=== PATIENT | female | born 1960 | race American Indian/Alaskan Native ===

== ENCOUNTER 2020-07-01 08:20 | Outpatient (CLI) | payer OTHER ==
--- NOTE | 2020-07-01 09:01 | Mammography Report ---
DIGITAL SCREENING MAMMOGRAM WITH CAD, 07/01/2020 CLINICAL INFORMATION / INDICATION: Routine screening mammography. TECHNIQUE: Digital bilateral 2D mammography was obtained in the craniocaudal and mediolateral obliqu e projections. This examination was interpreted with the benefit of Computer-Aided Detection analysis . COMPARISON: 02/18/2018, 06/30/2019 FINDINGS: Breast Density: There are scattered areas of fibroglandular density. No dominant mass, suspicious calcifications, or architectural distortion in either breast. No interval change. IMPRESSION: No mammographic evidence of malignancy. Follow up recommendation: Routine yearly BI-RADS Category 1: Negative. A "normal" or negative report should not discourage follow up or biopsy of a clinically significant f inding. A written summary of these findings will be mailed to the patient. The patient will be entered into a mammography reporting system which will generate a reminder letter for the patient's next appointmen t at the appropriate interval. The [employer] recommends yearly mammograms starting at age 40 and continuing as l annie as a woman is in good health. Breast MRI is recommended for women with an approximate 20-25% or greater lifetime risk of breast cancer, including women with a strong family history of breast or ova jennifer cancer or who have been treated for Hodgkin's disease. Signer Name: Corinna Rutherford MD Signed: 07/01/2020 8:57 AM Workstation Name: [id number]
== END 2020-07-01 08:21 | disposition home or self-care (01) ==
LOC: SPVWC 08:20
PROVIDERS: ATTEND Surgery
DX: Z12.31 Encounter for screening mammogram for malignant neoplasm of breast (principal)
CPT/HCPCS: 77067

== ENCOUNTER 2020-07-28 13:39 | Outpatient (CLI) | payer OTHER ==
--- NOTE | 2020-07-28 15:28 | Magnetic Resonance Report ---
Bilateral breast MR without and with contrast. History: Screening breast MRI, patient at high risk for breast malignancy based upon family history. Comparison: 07/01/2020. Technique: Multiplanar multisequence MR images of the breast were obtained before and after the intra venous administration of intravenous contrast. Post processing analysis and review was performed on a separate computer workstation. Findings: Breast composition is scattered fibroglandular. There is minimal background parenchymal enhancement w ithin both breasts. LEFT BREAST: Located within the left medial anterior breast is a 9 x 6 x 7 mm lobulated enhancing les ion. This is best seen on image 779/[id number]. This is estimated to be at the 9:00 position, 3 cm from the nipple. RIGHT BREAST: No discrete enhancing mass, dominant focus, or other abnormal enhancement within the ri ght breast. No abnormal axillary or internal mammary lymph nodes. Impression: Left breast enhancing lesion for which targeted ultrasound is recommended for further evaluation. For localization purposes, the left breast should be scanned focused at the 9:00 position, 3 cm from the nipple. If a sonographic correlate is identified, an ultrasound-guided biopsy is recommended. If no sonographic correlate is identified, an MRI guided biopsy would be recommended. BIRADS 0: Incomplete--Needs Additional Imaging Evaluation. A normal MRI does not exclude the presence of some forms of breast malignancy as literature reports s uggest that some forms of ductal carcinoma in situ or lobular carcinoma, particularly, may not be det ected on MRI. The sensitivity and specificity of MRI for cancers under 5 mm may be reduced. MRI does not replace the recommendation for annual conventional mammographic evaluation and should be used as an adjunct to mammography and physical examination as necessary. Signer Name: Beny Serrano MD Signed: 07/28/2020 3:24 PM Workstation Name: [id number]
== END 2020-07-28 13:40 | disposition home or self-care (01) ==
LOC: SPVIMAG 13:39
PROVIDERS: ATTEND Surgery
DX: N63.42 Unspecified lump in left breast, subareolar (principal); Z80.41 Family history of malignant neoplasm of ovary; Z80.3 Family history of malignant neoplasm of breast
CPT/HCPCS: A9577; C8908; 77049

== ENCOUNTER 2020-09-07 08:57 | Outpatient (CLI) | payer OTHER ==
--- NOTE | 2020-09-07 10:50 | Mammography Report ---
LEFT DIGITAL DIAGNOSTIC MAMMOGRAM WITH CAD , 09/07/2020 LEFT COMPLETE BREAST ULTRASOUND CLINICAL INFORMATION / INDICATION: The patient has a history of abnormal breast MRI with an area of m asslike enhancement in the left breast at the 9:00 position. She presents today for additional evalua tion. TECHNIQUE: Digital left mammographic imaging was performed. Spot compression views were obtained. Com plete ultrasound of all four (4) quadrants was performed. This examination was interpreted with the b enefit of Computer-Aided Detection (CAD) analysis. COMPARISON: Screening mammogram, 07/01/2020. Breast MRI, 07/28/2020 FINDINGS: Breast Density: There are scattered areas of fibroglandular density. MAMMOGRAPHIC FINDINGS: No dominant mass, suspicious calcifications, or architectural distortion in th e left breast. Specifically, there is no focal abnormality to account for the 9 mm masslike enhanceme nt at the 9:00 position anterior depth to correspond to the MRI findings. ULTRASOUND FINDINGS: Complete sonographic evaluation of all 4 quadrants and retroareolar region was p erformed. Sonographic evaluation of the left breast demonstrates no evidence of suspicious solid ma ss or shadowing. IMPRESSION: 1. No mammographic or sonographic abnormality to correspond to the enhancing lesion seen on the recen t breast MRI. Although it is low suspicion for malignancy, MRI guided biopsy is recommended. Follow up recommendation: Biopsy BI-RADS Category 4: Suspicious for Malignancy. A "normal" or negative report should not discourage follow up or biopsy of a clinically significant f inding. A written summary of these findings will be mailed to the patient. The patient will be entered into a mammography reporting system which will generate a reminder letter for the patient's next appointmen t at the appropriate interval. According to the [employer], yearly mammograms are recommended starting at age 40 and continuing as long as a woman is in good health. Breast MRI is recommended for women with an talisha roximately 20-25% or greater lifetime risk of breast cancer, including women with a strong family his tory of breast or ovarian cancer and women who have been treated for Hodgkin's disease. Signer Name: Radha Griffith MD Signed: 09/07/2020 10:45 AM Workstation Name: [id number]
== END 2020-09-07 08:58 | disposition home or self-care (01) ==
LOC: SPVWC 08:57
PROVIDERS: ATTEND Surgery
DX: R92.8 Other abnormal and inconclusive findings on diagnostic imaging of breast (principal)

== ENCOUNTER 2020-09-21 10:24 | Outpatient (CLI) | payer OTHER ==
--- NOTE | 2020-09-21 13:34 | Mammography Report ---
DIGITAL DIAGNOSTIC MAMMOGRAM WITH CAD , 09/21/2020 CLINICAL INFORMATION / INDICATION: Left diagnostic mammogram performed to document clip placement aft er MRI guided biopsy. TECHNIQUE: Digital left mammographic imaging was performed. This examination was interpreted with the benefit of Computer-aided Detection analysis. COMPARISON: MRI guided left breast biopsy, 09/21/2020. Diagnostic mammogram, 09/07/2020. Breast MRI, 07/28/2020. FINDINGS: Breast Density: There are scattered areas of fibroglandular density. Postbiopsy mammogram confirms satisfactory positioning of the biopsy clip at the 9:00 position anteri or depth. IMPRESSION: Satisfactory postbiopsy appearance of the left breast. Follow up recommendation: No recall. Post biopsy imaging. A "normal" or negative report should not discourage follow up or biopsy of a clinically significant f inding. A written summary of these findings will be mailed to the patient. The patient will be entered into a mammography reporting system which will generate a reminder letter for the patient's next appointmen t at the appropriate interval. According to the [employer], yearly mammograms are recommended starting at age 40 and continuing as long as a woman is in good health. Breast MRI is recommended for women with an talisha roximately 20-25% or greater lifetime risk of breast cancer, including women with a strong family his tory of breast or ovarian cancer and women who have been treated for Hodgkin's disease. Signer Name: Radha Griffith MD Signed: 09/21/2020 1:29 PM Workstation Name: [id number]
--- NOTE | 2020-09-22 09:35 | Magnetic Resonance Report ---
MRI guided left breast biopsy CLINICAL INFORMATION/INDICATION: The patient has a history of abnormal breast MRI with a masslike are a of enhancement in the left breast at the 9:00 position. There is no mammographic or sonographic cor relate to this finding. Therefore, MRI guided biopsy is indicated. COMPARISON: Breast MRI, 07/28/2020. Diagnostic mammogram and ultrasound, 09/07/2020 PROCEDURE: Risks, benefits and indications to the procedure were discussed with the patient in detail, including bleeding, infection, hematoma formation and inadequate tissue sampling. The patient agreed to procee d with both verbal and written consent. A timeout procedure was performed with two patient identifier s. The patient was placed in the prone position in the MRI suite and localizer imaging was obtained usin g an 8 channel breast coil. Sagittal pre and post gadolinium fat-saturated sequences were obtained. The targeted area of interest at the 9:00 position anterior depth was then identified and coordinates were determined. The breast was cleansed and prepped in the usual sterile fashion. Lidocaine 1% was used for superficial anesthesia. Lidocaine 1% with epinephrine was used for deep anesthesia. A 9 gaug e introducer sheath and stylette was then advanced to the appropriate position from the lateral appro ach. The stylette was replaced with an obturator. Subsequent sagittal sequences were obtained to con firm satisfactory positioning of the sheath. Multiple vacuum-assisted 9 gauge core samples were obtai kellie in a round the clock fashion with an GrowYo biopsy device. Post-biopsy images confirm satisfactory tissue sampling at the targeted location. Postbiopsy images demonstrate a small postbiopsy hematoma w hich was aspirated via the stylette yielding less than 5 cc of blood. A biopsy clip was then deployed at the biopsy site and sheath was removed. Hemostasis achieved with manual pressure. A sterile pres sure dressing was applied to the skin. The patient tolerated the procedure without difficulty. No complications were encountered. Post-biops y instructions were discussed with the patient and given in writing. IMPRESSION: 1. Technically successful MRI guided left breast biopsy. Biopsy results are pending and will be repor sathish in an addendum. Signer Name: Radha Griffith MD Signed: 09/21/2020 3:14 PM Workstation Name: [id number]
== END 2020-09-21 10:25 | disposition home or self-care (01) ==
LOC: SPVIMAG 10:24
PROVIDERS: ATTEND Surgery
DX: R92.0 Mammographic microcalcification found on diagnostic imaging of breast (principal); R92.8 Other abnormal and inconclusive findings on diagnostic imaging of breast; Z79.899 Other long term (current) drug therapy
CPT/HCPCS: 19085; 77065; 88305; A4648; A9575; 88312

== ENCOUNTER 2021-10-19 11:16 | Outpatient (CLI) | payer OTHER ==
--- NOTE | 2021-10-21 10:25 | Mammography Report ---
DIGITAL SCREENING MAMMOGRAM WITH CAD, 10/19/2021 CLINICAL INFORMATION / INDICATION: Routine screening TECHNIQUE: Digital bilateral 2D mammography was obtained in the craniocaudal and mediolateral obliqu e projections. This examination was interpreted with the benefit of Computer-Aided Detection analysis . COMPARISON: 06/30/2019 FINDINGS: Breast Density: There are scattered areas of fibroglandular density. No dominant mass, suspicious calcifications, or architectural distortion in either breast. IMPRESSION: No mammographic evidence of malignancy. Follow up recommendation: Routine yearly BI-RADS Category 1: NEGATIVE A "normal" or negative report should not discourage follow up or biopsy of a clinically significant f inding. A written summary of these findings will be mailed to the patient. The patient will be entered into a mammography reporting system which will generate a reminder letter for the patient's next appointmen t at the appropriate interval. The [employer] recommends yearly mammograms starting at age 40 and continuing as l annie as a woman is in good health. Breast MRI is recommended for women with an approximate 20-25% or greater lifetime risk of breast cancer, including women with a strong family history of breast or ova jennifer cancer or who have been treated for Hodgkin's disease. Signer Name: Derrick Hallman MD Signed: 10/21/2021 10:21 AM Workstation Name: [id number]
== END 2021-10-19 11:17 | disposition home or self-care (01) ==
LOC: SPVWC 11:16
PROVIDERS: ATTEND Surgery
DX: Z12.31 Encounter for screening mammogram for malignant neoplasm of breast (principal)
CPT/HCPCS: 77067